=== PATIENT | male | born 1955 | race Caucasian/White ===

== ENCOUNTER 2019-04-18 09:10 | Emergency (ER) | payer BC ==
[~2019-04-18 09:10] MED LIST: EPINEPHRINE HCL 0.1 MG/ML 10ML SYR IVP ONE
[2019-04-18] MEDS ORDERED: AMIODARONE 150MG/100ML BOLUS 150 MG/100 ML ML IV ONE (09:11)
[2019-04-18] MEDS ORDERED: EPINEPHRINE HCL 0.1 MG/ML 10ML SYR IVP ONE ×3 (09:30→09:57)
[2019-04-18] MEDS ORDERED: EPINEPHRINE IV ONE (09:45)
[2019-04-18] MEDS ORDERED: SODIUM CHLORIDE 0.9% IV ONE (09:45)
[2019-04-18 09:46] LABS: ABSOLUTE NEUTROPHIL COUNT 3.64; HEMATOCRIT 46.1 % (42.0-52.0); HEMOGLOBIN 14.6 gm/dl (14.0-18.0); MEAN CELL VOLUME 93.9 fl (81-97); MEAN CORPUSCULAR HEMOGLOBIN 29.7 pg (27-33); MEAN CORPUSCULAR HGB CONC 31.7 g/dl (32-36); MEAN PLATELET VOLUME 9.3 fl (7.4-10.4); PLATELET COUNT 288 K/uL (130-400); RED BLOOD COUNT 4.91 M/uL (4.40-5.70); WHITE BLOOD COUNT W/O DIFF 10.1 K/uL (4.2-12.2)
[2019-04-18] MEDS ORDERED: AMIODARONE 360MG/200ML MAINT 360 MG/200 ML ML IV ONE (09:46)
[2019-04-18 09:49] LABS: ALB/GLOB RATIO 2.1 (1.1-1.8); ALBUMIN 4.1 g/dL (4.0-5.0); ALKALINE PHOSPHATASE 63 U/L (40-129); ALT/SGPT 140 U/L (<41); AST/SGOT 102 U/L (10.0-50.0); BLOOD UREA NITROGEN 16 mg/dL (8-23); CREATINE PHOSPHOKINASE 197 U/L (39-308); CREATININE 1.6 mg/dL (0.7-1.2); EST GLOMERULAR FILTRATION RATE 47 mL/min; GLUCOSE,RANDOM 327 mg/dL (74-109); TOTAL PROTEIN 6.1 g/dL (6.6-8.7)
--- NOTE | 2019-04-18 09:51 | Emergency Department Record ---
History of Present Illness - General Chief Complaint: Code Adult Stated Complaint: CARDIAC ARREST Time Seen by Provider: 04/18/19 09:16 Source: Family, EMS Mode of Arrival: EMS - History of Present Illness Initial Comments: The patient is here due to suffering a presumed cardiac arrest at home at approx. 8am. He was found by his anagling in bed and then collapsed. EMS was called and the patient did not receive prehospital CPR. EMS found the patient to be pulseless and apneic. CPR was started and Epi was given. The patient also was intubated with an I-Gel. The patient then was found to be in Vfib and was defibrillated once with 300 joules into a regular rhythm. The pa tient then was found to have pulses and a blood pressure. The patient was brought here to the ER and was found to be in an agonal rhythm. We did give the patient an Epi and performed CPR for 2 minutes. The patient was then found to be in a regular rhythm with a good blood pressure. Per the patient's the patient does not go to the doctor but does have a hx of a LBBB. Complaint: Collapsed during rest - Related Data Home Medications Medication Instructions Recorded Confirmed Last Taken No Home Med [NO HOME MEDS] 04/18/19 04/18/19 Unknown Allergies Allergy/AdvReac Type Severity Reaction Status Date / Time No Known Drug Allergies Allergy Verified 04/18/19 09:43 Review of Systems ROS unobtainable: Due to endotracheal tube Physical Exam - General Limitations: Altered mental status (The patient is intubated with a GCS of 3.) - Head Head exam: Atraumatic, Normocephalic - Eye Eye exam: Normal appearance. negative: PERRL (The patient's pupils are fixed and mid range.) - Neck Neck exam: Normal inspection, Full ROM. negative: Tenderness - Respiratory Respiratory exam: Normal lung sounds bilaterally. negative: Respiratory distress - Cardiovascular Cardiovascular Exam: Regular rate, Normal rhythm, Normal heart sounds - GI/Abdominal GI/Abdominal exam: Soft, Normal bowel sounds. negative: Tenderness - Extremities Extremities exam: Normal inspection, Full ROM, Normal capillary refill. ne gative: Tenderness - Neurological Neurological exam: Other (The patient has a GCS of 3. ). negative: Alert, Motor sensory deficit Course - Reevaluation(s) Reevaluation #1: Due to the critical nature of the patient's complaints we did contact [facility] and did discuss the case with Dr. Johnson. He did accept the patient to the ICU. 04/18/19 09:52 Reevaluation #2: 2nd EKG: Sinus nilton at 49, LBBB. 04/18/19 09:55 Reevaluation #3: The patient was stable at the time of transfer with a blood pressure of 114/60 and a HR of 92. 04/18/19 09:55 Reevaluation #4: After discharge I did discuss the case with Dr. Wood from the ICU team and he also is aware of the transfer. 04/18/19 10:30 Medical Decision Making - Data Complexity MDM Data: Labs Ordered and/or Reviewed, EKG Ordered and/or Reviewed - Lab Data Result diagrams: 04/18/19 09:15 04/18/19 09:42 - EKG Data -: EKG Interpreted by Me (Accelerated IV rhythm at 114. LBBB.) Critical Care Time Critical Care Time: Yes Total Critical Care Time: 45 Critical Care Time: Total CC time 45 minutes. Disposition Forms: Patient Portal Access Quality - Quality Measures Quality Measures: N/A - Blood Pressure Screening View Details: Yes Does Patient Have Any of the Following: No Systolic Measurement: ~ Screening for High Blood Pressure: < Normal BP, F/U Not Required > [G8783]
--- NOTE | 2019-04-18 11:44 | Emergency Department Record ---
History of Present Illness - General Chief Complaint: Code Adult Stated Complaint: CARDIAC ARREST Time Seen by Provider: 04/18/19 09:16 Source: Family, EMS Mode of Arrival: EMS Limitations: Altered mental status (The patient is intubated with a GCS of 3.) - History of Present Illness MD Complaint: Collapsed during rest -: Minute(s) Place: Home Bystander CPR Performed: No AED Applied by Bystander/Solar Panel Technician: Yes Number of Shocks Delivered: 1 Initial Findings in the Field: Unresponsive, No pulse, Asystole Associated Injuries: No Treatments Prior to Arrival: BMV, Chest compressions, Defribrillated shocks #, Intubation, Epinephrine mgs #, Other - Related Data Home Medications Medication Instructions Recorded Confirmed Last Taken No Home Med [NO HOME MEDS] 04/18/19 04/18/19 Unknown Allergies Allergy/AdvReac Type Severity Reaction Status Date / Time No Known Drug Allergies Allergy Verified 04/18/19 09:43 Travel Screening - Travel/Exposure Within Last 30 Days Have you traveled within the last 30 days?: No Past Medical History - SOCIAL HISTORY Smoking Status: Never smoker Alcohol Use: None Drug Use: None - RESPIRATORY Hx Respiratory Disorders: Yes Hx of CPAP: Yes (3-5 years) Comment:: sleep apnea - CARDIOVASCULAR Hx Cardio Disorders: Yes Comment:: left bundle branch block - NEURO Hx Neuro Disorders: No - GI Hx GI Disorders: No - Hx Genitourinary Disorders: No - ENDOCRINE Hx Endocrine Disorders: No - MUSCULOSKELETAL Hx Musculoskeletal Disorders: No - PSYCH Hx Psych Problems: No - HEMATOLOGY/ONCOLOGY Hx Hematology/Oncology Disorders: No Family Medical History Any Significant Family History?: Yes Hx Heart Disease: Father Physical Exam - General Limitations: Altered mental status (The patient is intubated with a GCS of 3.) Course Vital Signs 04/18/19 09:10 Respiratory 12 Rate Medical Decision Making - Lab Data Result diagrams: 04/18/19 09:15 04/18/19 09:42 Lab Results 04/18/19 04/18/19 Range/Units 09:15 09:42 WBC 10.1 (4.2-12.2) K/uL RBC 4.91 (4.40-5.70) M/uL Hgb 14.6 (14.0-18.0) gm/dl Hct 46.1 (42.0-52.0) % MCV 93.9 (81-97) fl MCH 29.7 (27-33) pg MCHC 31.7 L (32-36) g/dl RDW 15.0 H (11.5-14.5) % Plt Count 288 (130-400) K/uL MPV 9.3 (7.4-10.4) fl Neutrophils % 36.0 L (47-80) % Band Neutrophils % 0.0 (0-5) % Eosinophils % Not Reportable Basophils % Not Reportable Absolute Neutrophils 3.64 Lymphocytes 53.0 H (16-45) % Monocytes 7.0 (0-9) % Basophils 0.0 (0-6) % Eosinophil Count 4.0 (0-6) % Sodium 145 (136-145) mmol/L Potassium 2.9 L* (3.4-4.5) mmol/L Chloride 102 (98-107) mmol/L Carbon Dioxide 17.0 L (22-29) mmol/L Anion Gap 26.0 H (7-16) BUN 16 (8-23) mg/dL Creatinine 1.6 H (0.7-1.2) mg/dL Estimated GFR 47 mL/min Random Glucose 327 H (74-109) mg/dL Calcium 9.1 (8.8-10.2) mg/dL Total Bilirubin 0.70 (0.2-1.0) mg/dL AST 102 H (10.0-50.0) U/L ALT 140 H (<41) U/L Alkaline Phosphatase 63 (40-129) U/L Creatine Kinase 197 (39-308) U/L Troponin T < 0.010 (0-0.010) ng/mL Total Protein 6.1 L (6.6-8.7) g/dL Albumin 4.1 (4.0-5.0) g/dL Globulin 2.0 (1.4-4.8) gm/dL Albumin/Globulin Ratio 2.1 H (1.1-1.8) Disposition Disposition: Transfer Disposition: Acute Care Hospital Transfer Transfer To: [facility] ICU Reason For Transfer: Cardiac Arrest Accepting Physician: Elizabeth Time Discussed w/Accepting Physician: 10:00 Condition: (5) Critical Forms: Patient Portal Access Time of Disposition: 11:44 Quality - Quality Measures Quality Measures: N/A - Blood Pressure Screening View Details: Yes Does Patient Have Any of the Following: No Systolic Measurement: ~ Screening for High Blood Pressure: < Normal BP, F/U Not Required > [O7712]
== END 2019-04-18 10:04 | disposition short-term general hospital (02) ==
LOC: ER 09:10
DX: I46.9 Cardiac arrest, cause unspecified (principal); I44.7 Left bundle-branch block, unspecified
CPT/HCPCS: 31500; 80053; 82550; 84484; 85027; 93005; 93010; 94002; 96365; 96366; 96368; 99291; J0171; J7050